=== PATIENT | female | born 1960 | race Caucasian/White ===

== ENCOUNTER 2018-03-10 13:58 | Day surgery (SDC) | payer OTHER ==
[~2018-03-10] VITALS: Ht 149.9 cm; Wt 64.0 kg
[~2018-03-10 13:58] MED LIST: ANTI-INFLAMMATORY PO; CYCL7.5T25 PO; GABA100C PO; GABA300C PO; MULT-516 PO; OXYCODONE PO
[2018-03-10] MEDS ORDERED: LACTATED RINGERS 1,000 ML IV SCH (14:08)
[2018-03-10] MEDS ORDERED: GABAPENTIN 300 MG CAPSULE PO ONE (14:30)
[2018-03-10] MEDS ORDERED: ACETAMINOPHEN 500 MG TABLET PO ONE (14:30)
[2018-03-10] MEDS ORDERED: ONDANSETRON ODT 8 MG PO ONE (14:30)
[2018-03-10] MEDS ORDERED: FAMOTIDINE 20 MG TABLET PO ONE (14:30)
[2018-03-10] MEDS ORDERED: METOCLOPRAMIDE 10MG TABLET PO ONE (14:30)
[2018-03-10 15:00] VITALS: BP 148/88
[2018-03-10] MEDS ORDERED: FENTANYL PF 250 MCG/5ML ONE (15:48)
[2018-03-10] MEDS ORDERED: MIDAZOLAM 1 MG/ML, 2ML ONE (15:49)
[2018-03-10] MEDS ORDERED: GLYCOPYRROLATE 0.2MG/1ML, 5ML ONE (16:38)
[2018-03-10] MEDS ORDERED: SUCCINYLCHOLINE 20 MG/ML, 10ML ONE (16:38)
[2018-03-10] MEDS ORDERED: KETAMINE 100 MG/ML, 5ML ONE (16:38)
[2018-03-10] MEDS ORDERED: NEOSTIGMINE 1 MG/ML, 10ML ONE (16:38)
[2018-03-10] MEDS ORDERED: ROCURONIUM 10MG/ML,5ML ONE (16:38)
[2018-03-10] MEDS ORDERED: ATROPINE 0.4 MG/ML, 1ML ONE (16:38)
[2018-03-10] MEDS ORDERED: PROPOFOL 10 MG/ML, 20ML ONE (16:38)
[2018-03-10] MEDS ORDERED: DEXAMETHASONE 4 MG/ML, 1ML ONE (16:38)
[2018-03-10] MEDS ORDERED: CEFAZOLIN 1,000 MG ONE (16:38)
[2018-03-10] MEDS ORDERED: EPHEDRINE 50 MG/ML, 1ML IM PRN (17:30)
[2018-03-10] MEDS ORDERED: MEPERIDINE/PF 25MG/0.5ML IVPush PRN (17:30)
[2018-03-10] MEDS ORDERED: OXYcodone 5 MG/5 ML ORAL.SOL UDC PO PRN (17:30)
[2018-03-10] MEDS ORDERED: ALBUTEROL SULFATE 2.5 MG/3 ML NPPB PRN (17:30)
[2018-03-10] MEDS ORDERED: PROMETHAZINE 25 MG/ML, 1ML IV PRN (17:30)
[2018-03-10] MEDS ORDERED: KETOROLAC 30 MG/1 ML IV PRN ×2 (17:30→21:00)
[2018-03-10] MEDS ORDERED: FENTANYL PF 100 MCG/2ML ONE (18:05)
[2018-03-10] MEDS ORDERED: OXYcodone 5 MG/5 ML ORAL.SOL UDC ONE (18:06)
[2018-03-10] MEDS: FENTANYL PF 100 MCG/2ML IV PRN ×2 (18:15→18:25)
[2018-03-10] MEDS ORDERED: KETOROLAC 30 MG/1 ML ONE (18:42)
[2018-03-10] MEDS ORDERED: HYDROmorphone 1 MG/ML, 1ML ONE (19:09)
[2018-03-10] MEDS: HYDROmorphone 1 MG/ML, 1ML IV PRN ×2 (19:12→19:18)
[2018-03-10] MEDS ORDERED: IBUPROFEN 600 MG TABLET PO PRN (21:00)
[2018-03-10] MEDS ORDERED: OXYcodone/APAP 5/325MG TABLET PO PRN (21:00)
[2018-03-10] MEDS ORDERED: HYDROmorphone 1 MG/ML, 1ML IV PRN (21:00)
[2018-03-10] MEDS ORDERED: CYCLOBENZAPRINE 10 MG TABLET PO SCH (21:00)
[2018-03-10] MEDS ORDERED: ONDANSETRON 2MG/ML, 2ML IV PRN (21:00)
[2018-03-11] MEDS ORDERED: MULTIVITAMIN 1 TABLET PO SCH (09:00)
== END 2018-03-10 22:10 | disposition home or self-care (01) ==
LOC: OR 13:58 → 4NOR 19:50 → OR 22:10
PROVIDERS: ATTEND Obstetrics & Gynecology Female Pelvic Medicine and Reconstructive Surgery
DX: N95.0 Postmenopausal bleeding (principal); F32.9 Major depressive disorder, single episode, unspecified; F41.9 Anxiety disorder, unspecified
CPT/HCPCS: 58552; 88307; J0330; J0461; J0690; J1100; J1170; J1885; J2250; J2704; J2710; J3010; J7120; Q0162; J3490